=== PATIENT | male | born 1990 | race Caucasian/White ===

== ENCOUNTER 2021-03-30 21:39 | Emergency (ER) | payer MEDICAID ==
[2021-03-30 22:17] VITALS: BP 127/68; PULSE 78; RESP 20; TEMP 98.2
[2021-03-30] MEDS ORDERED: HYDROcodone/APAP 5-325MG 1 EACH TAB PO STA (22:28)
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
--- NOTE | 2021-03-30 22:51 | XR ---
EXAMINATION TYPE: XR hand complete LT DATE OF EXAM: 03/30/2021 COMPARISON: NONE HISTORY: Trauma. Pain TECHNIQUE: 3 views FINDINGS: There is comminuted fracture across the base of the proximal phalanx of the index finger le ft hand. There is no significant displacement. There is no dislocation. Metacarpals are intact. IMPRESSION: Acute fracture of the proximal phalanx index finger left hand.
[2021-03-30] MEDS ORDERED: LIDOCAINE 1% INJ 10MG/ML (20 ML MDV) SQ ONE (22:53)
[2021-03-30] MEDS ORDERED: ACET/COD 300 MG/30 MG STARTER PACK 6 TAB BTL PO STA (22:54)
== END 2021-03-30 23:26 | disposition home or self-care (01) ==
LOC: EC 21:39
DX: S62.611A Displaced fracture of proximal phalanx of left index finger, initial encounter for closed fracture (principal); Z88.1 Allergy status to other antibiotic agents; Z88.2 Allergy status to sulfonamides; W50.0XXA Accidental hit or strike by another person, initial encounter
CPT/HCPCS: 99283; 26725; 73130; J2001

== ENCOUNTER 2021-05-20 15:52 | Emergency (ER) | payer MEDICAID ==
[2021-05-20 18:06] VITALS: BP 130/89; PULSE 62; RESP 18; TEMP 98.2
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
[2021-05-20] MEDS ORDERED: LIDOCAINE 2%-EPI 1:100,000 20 ML VIAL SQ STA (19:38)
[2021-05-20] MEDS ORDERED: LIDOCAINE 1% INJ 10MG/ML (20 ML MDV) SQ ONE (19:49)
--- NOTE | 2021-05-20 19:55 | XR ---
EXAMINATION TYPE: XR finger RT DATE OF EXAM: 05/20/2021 COMPARISON: NONE HISTORY: Crushing injury of the fifth digit. TECHNIQUE: 3 views of the finger were obtained. FINDINGS: Alignment, mineralization and joint spaces are within normal limits. No acute fracture or d islocation. No radiopaque foreign body. IMPRESSION: No acute osseous injury of the fifth digit.
== END 2021-05-20 20:05 | disposition home or self-care (01) ==
LOC: EC 15:52
DX: S61.216A Laceration without foreign body of right little finger without damage to nail, initial encounter (principal); Z88.1 Allergy status to other antibiotic agents; Z88.2 Allergy status to sulfonamides; W23.1XXA Caught, crushed, jammed, or pinched between stationary objects, initial encounter
CPT/HCPCS: 99284; 12002; 73140; J2001

== ENCOUNTER → 2022-05-12 | Outpatient (CLI) | payer MEDICAID ==
--- NOTE | 2022-05-12 22:13 | FL ---
EXAMINATION TYPE: FL arthrogram shoulder LT DATE OF EXAM: 05/12/2022 CLINICAL HISTORY: Left shoulder pain. TECHNIQUE: Fluoroscopy assisted arthrogram.Fluoroscopic guidance was provided during left shoulder ar throgram procedure performed by myself. A total of 14 seconds of fluoroscopic time was utilized duri ng the procedure and 1 spot image is acquired. COMPARISON: None. FINDINGS: Procedure explained to patient including benefits, alternatives, and risks. Patient was ag reeable to proceed. Overlying skin is cleansed with Betadine. Lidocaine is used as anesthetic into the skin and deeper ti ssue up to the targeted left shoulder joint. Under fluoroscopic guidance, a 22-gauge spinal needle wa s advanced into the glenohumeral joint. Approximately 10 cc of a solution composed of 50% Isovue 300 mixed with 50% sterile saline containing 0.1 mL of gadolinium contrast. Fluoroscopic image saved conf irming successful contrast injection. At this point needle is withdrawn. Patient tolerated procedure well without any immediate complication. Patient taken to MRI for subsequ ent MRI of left shoulder exam. This report is dictated separately. Patient left the hospital in stabl e and satisfactory condition. IMPRESSION: As Above.
--- NOTE | 2022-05-12 22:35 | MR ---
EXAMINATION TYPE: MR shoulder arthrogrm LT w co DATE OF EXAM: 05/12/2022 COMPARISON: None. HISTORY: Left shoulder pain, instability. TECHNIQUE: Multiplanar, multisequence images of the left shoulder is performed following intrathecal articulation of diluted gadolinium. FINDINGS: Rotator Cuff: Supraspinatus and infraspinatus tendons are intact. Subscapularis tendon is intact. Rot ator cuff muscle bulk is preserved. Acromioclavicular Joint: Mild narrowing can't mild to moderate capsular hypertrophy. No significant s purring. Loss of underlying fat plane is present suggesting underlying impingement. Glenohumeral Joint: Successful intra-articular injection of contrast. Focal chondral defect measuring approximately 6 mm craniocaudal dimension coronal image 15 series 501 and 5 mm AP diameter axial ruth ge 18 series 1001. Intra-articular cartilage fragment or loose body not clearly identified. No significant spurring. Labrum: There is abnormal signal in the labrum extending forward to returning anteriorly to level of the mid glenoid seen best at level of the biceps anchor and extending inferiorly. There is estimated near 270 degrees of involvement of this extensive labral tear. Biceps Tendon: The long head of biceps is in normal location within bicipital groove. Bone marrow signal: No focal abnormal marrow signal is appreciated. Other: No additional significant abnormality is appreciated. IMPRESSION: 1. Extensive labral tear as detailed above along with focal chondral defect involving the glenoid as detailed above.
== END | disposition home or self-care (01) ==
LOC: RADFLMAIN 12:51
DX: M75.112 Incomplete rotator cuff tear or rupture of left shoulder, not specified as traumatic (principal)
CPT/HCPCS: 23350; 73040; 73222; J2001; Q9967